=== PATIENT | female | born 1985 | race Caucasian/White ===

== ENCOUNTER → 2020-12-12 | Outpatient (CLI) | payer OTHER ==
[~2020-12-12] MED LIST: AMOX500 PO; ATEN100 PO; CIPR500 PO; CLIN150 PO; CLON.5 PO; CODACE30 PO; CODGUAEL PO; CYCL10 PO; DOXY100 PO; ERYT.5TO RIGHTEYE; HYDACE5 PO; IBUP200; LEVFLO500 PO; LISI5 PO; LORA10ER PO; MEDR10 PO; METR500 PO; MULVITMINE; MULVITMINE PO; NAPR375 PO; NEOPOLHYDS OT; Norco 5-325 Ta1 EACH PO; OXECTA5 MG PO; OXYACE5T PO; OXYC5 PO; PARO10 PO; PHENA200 PO; PROM25 PO; RXALBOI INH; RXHYDACE PO; RXOXYACE PO; RXTRAM50 PO; Roxicodone5 MG PO; SULTRIDS PO; TRAM50 PO; Verotin-Gr Cap1 EACH PO; WARF1 PO; ZOLP5 PO
== END | disposition home or self-care (01) ==
LOC: LAB 20:23 → LAB SHORT 20:23
DX: J02.9 Acute pharyngitis, unspecified (principal)
CPT/HCPCS: 87081

== ENCOUNTER 2021-05-28 23:51 | Emergency (ER) | payer OTHER ==
[~2021-05-28] VITALS: Ht 167.6 cm; Wt 72.6 kg
== END 2021-05-29 00:58 | disposition home or self-care (01) ==
LOC: ER 23:51
DX: U07.1 COVID-19 (principal); Z88.6 Allergy status to analgesic agent; Z91.018 Allergy to other foods; Z87.891 Personal history of nicotine dependence
CPT/HCPCS: 99283

== ENCOUNTER → 2021-11-17 | Outpatient (CLI) | payer OTHER ==
[2021-11-21 00:07] LABS: CHLAMYDIA TRACHOMATIS, NAA Positive (Negative)
== END | disposition home or self-care (01) ==
LOC: LAB 16:23 → LAB SHORT 16:23
PROVIDERS: Nurse Practitioner Family
DX: Z72.51 High risk heterosexual behavior (principal)
CPT/HCPCS: 87491; 87591

== ENCOUNTER 2022-03-21 18:51 | Emergency (ER) | payer OTHER ==
[~2022-03-21] VITALS: Ht 167.6 cm; Wt 79.8 kg
[2022-03-21] MEDS ORDERED: NAPR500 PO (21:01)
[2022-03-21] MEDS ORDERED: CRUTCH4 XX (21:01)
[2022-03-21] MEDS ORDERED: CYCL10 PO (21:01)
== END 2022-03-21 21:14 | disposition home or self-care (01) ==
LOC: ER 18:51
DX: S76.911A Strain of unspecified muscles, fascia and tendons at thigh level, right thigh, initial encounter (principal); F41.9 Anxiety disorder, unspecified; F32.A Depression, unspecified; Z88.6 Allergy status to analgesic agent; Z91.018 Allergy to other foods; Z87.891 Personal history of nicotine dependence; X58.XXXA Exposure to other specified factors, initial encounter; Y93.64 Activity, baseball; Y92.9 Unspecified place or not applicable
CPT/HCPCS: 76882; J1885

== ENCOUNTER → 2022-05-27 | Outpatient (CLI) | payer OTHER ==
[~2022-05-27] MED LIST changes: +CRUTCH4 XX; +NAPR500 PO
[2022-05-29 01:08] LABS: CHLAMYDIA TRACHOMATIS, NAA Negative (Negative)
== END ==
LOC: LAB SHORT 15:30 → LAB 15:30
PROVIDERS: Family Medicine
DX: Z20.2 Contact with and (suspected) exposure to infections with a predominantly sexual mode of transmission (principal)
CPT/HCPCS: 87491; 87591

== ENCOUNTER → 2022-08-18 | Outpatient (CLI) | payer OTHER | LOC: LAB 16:52 → LAB SHORT 16:52 | DX: N39.0 Urinary tract infection, site not specified (principal) | CPT/HCPCS: 87077; 87086; 87186 ==

== ENCOUNTER → 2023-04-06 | Outpatient (CLI) | payer OTHER ==
[2023-04-06 17:47] LABS: Source, Urine Voided
[2023-04-06 18:47] LABS: Appearance, Urine Hazy (Clear); Blood, Urine 4+ (Neg); Color, Urine Red (P-Yellow); Glucose Qualitative, Urine Neg (Neg); Ketones, Urine Neg (Neg); Leukocyte Esterase, Urine 1+ (Neg); Nitrite, Urine Pos (Neg); Protein, Urine 1+ (Neg); Specific Gravity, Urine 1.025 (1.003-1.022); Urobilinogen, Urine 1+ (Normal)
[2023-04-06 19:11] LABS: Bilirubin, Urine 1+ (Neg)
[2023-04-06 19:13] LABS: Bacteria Many /hpf; Squamous Epithelial Cells Few /hpf (Few)
[2023-04-06 19:14] LABS: Mucus Light (0-Heavy)
[2023-04-06 19:15] LABS: Hyaline Casts 0-2 /lpf (0-2)
== END | disposition home or self-care (01) ==
LOC: LAB SHORT 12:05 → LAB 12:05
PROVIDERS: Nurse Practitioner Family
DX: N39.0 Urinary tract infection, site not specified (principal)
CPT/HCPCS: 81001; 87086

== ENCOUNTER → 2024-01-13 | Outpatient (CLI) | payer OTHER | END | disposition home or self-care (01) | LOC: LAB SHORT 08:08 → LAB 08:08 | DX: N92.0 Excessive and frequent menstruation with regular cycle (principal) | CPT/HCPCS: 88305 ==

== ENCOUNTER → 2024-02-14 | Outpatient (CLI) | payer OTHER ==
[~2024-02-14] MED LIST changes: +Iron Chews15 MG; +MULVITA; +OXYC5
== END ==
LOC: LAB 07:56 → LAB SHORT 07:56
DX: D06.9 Carcinoma in situ of cervix, unspecified (principal); D06.0 Carcinoma in situ of endocervix
CPT/HCPCS: 88305

== ENCOUNTER 2024-02-28 12:16 | Day surgery (SDC) | payer BC, OTHER ==
[~2024-02-28] VITALS: Ht 167.6 cm; Wt 83.4 kg
[~2024-02-28 12:16] MED LIST changes: -Iron Chews15 MG; +Lidocaine HCl/Pf 1% 5 ML VIAL ONE; -MULVITA; -OXYC5; +Vasopressin 20 UNITS/ML 1ML Vial ONE
[2024-02-28] MEDS ORDERED: OXYC5 (12:55)
[2024-02-28] MEDS ORDERED: Iron Chews15 MG (12:56)
[2024-02-28] MEDS ORDERED: MULVITA (12:56)
[2024-02-28] MEDS ORDERED: Lactated Ringer's 1,000 ML IV ONE ×2 (13:14→13:51)
[2024-02-28] MEDS ORDERED: FentaNYL Citrate 50 MCG/ML 2 ML Injection ONE ×2 (13:26→14:46)
[2024-02-28] MEDS ORDERED: propofoL 20 ML IV ONE (13:26)
[2024-02-28] MEDS ORDERED: Ondansetron HCl 2 MG / ML 2ML Vial ONE (13:27)
[2024-02-28] MEDS ORDERED: Dexamethasone Sod Phos 10 MG/ML 1ML VIAL ONE (13:27)
[2024-02-28] MEDS ORDERED: Ketorolac Tromethamine 30mg Vial ONE (13:27)
[2024-02-28] MEDS ORDERED: Lidocaine HCl 1% 30 ML SDV XX ONE (13:48)
[2024-02-28 14:54] VITALS: BP 124/84
[2024-02-28] MEDS ORDERED: OxyCODONE HCL 5 MG TAB ONE (15:26)
--- NOTE | 2024-02-28 15:36 | NUR ---
02/28/24 1536 Giselle Dallas PATIENT C/O 4/10 ABDOMINAL PAIN. STATES TOLERABLE LEVEL OF PAIN IS "MAYBE AROUDN 3-4". PER ORDERS FROM DR AGUILLON, 1 TABLET OXYCODONE 5MG PO GIVEN NOW. PER ANESTHESIA RECORDS, PATIENT ALREADY RECEIVED 30MG TORADOL IN THE OR SO DID NOT GIVE TORADOL. PATIENT ADVISED THAT NEXT DOSE OF OXYCODONE WILL BE DUE AROUND 9;30 PM TONIGHT AND NEXT DOSE OF IBUPROFEN CAN BE TAKEN AROUND 7:30PM BASED ON TIME TORADOL WAS GIVEN IN OR. PT VERBALIZED THAT SHE IS READY TO GO HOME. VSS. , JODI AT CHAIRSIDE.
== END 2024-02-28 15:46 | disposition home or self-care (01) ==
LOC: ORSCSDS 12:16
PROVIDERS: Obstetrics & Gynecology
PROC: 0UBC7ZX Excision of Cervix, Via Natural or Artificial Opening, Diagnostic (ICD-10-PCS; principal; 2024-02-28 13:30)
DX: D06.9 Carcinoma in situ of cervix, unspecified (principal); N72 Inflammatory disease of cervix uteri; K21.9 Gastro-esophageal reflux disease without esophagitis; F41.9 Anxiety disorder, unspecified; F32.A Depression, unspecified; Z79.899 Other long term (current) drug therapy; F17.290 Nicotine dependence, other tobacco product, uncomplicated
CPT/HCPCS: 88305; 88341; 88342; A9270; J1100; J1885; J2001; J2405; J2704; J3010; J7120

== ENCOUNTER 2024-08-31 08:38 | Day surgery (SDC) | payer BC, OTHER ==
[~2024-08-31] VITALS: Ht 167.6 cm; Wt 85.0 kg
[~2024-08-31 08:38] MED LIST changes: +Acerola C500 MG PO; +ERGO50000 PO; +FERSU300 PO; +IBUP800 PO; +Iron Chews15 MG; +Lactated Ringer's 1,000 ML IV ONE; -Lidocaine HCl/Pf 1% 5 ML VIAL ONE; +MULVITA; +PREG25 PO; +VALA500 PO; +VITAMIN D2 PO; +VITAMIN D350 MC3 PO; +VITAMIN D5000 UNIT PO; -Vasopressin 20 UNITS/ML 1ML Vial ONE; +Vitamin B-12100 MCG PO
[2024-08-31] MEDS ORDERED: CeFAZolin Sodium 2,000 MG VIAL ONE ×2 (08:54→09:17)
[2024-08-31] MEDS ORDERED: NS 0 ML IV ONE ×2 (08:54→09:17)
[2024-08-31] MEDS ORDERED: Lactated Ringer's 1,000 ML IV ONE (09:14)
[2024-08-31] MEDS ORDERED: propofoL 40 ML IV ONE (09:58)
[2024-08-31] MEDS ORDERED: Midazolam HCl 1MG / ML 2ML Vial ONE (09:58)
[2024-08-31] MEDS ORDERED: Ondansetron HCl 2 MG / ML 2ML Vial ONE (10:43)
[2024-08-31] MEDS ORDERED: Dexamethasone Sod Phos 10 MG/ML 1ML VIAL ONE (10:43)
[2024-08-31] MEDS ORDERED: propofoL 20 ML IV ONE ×2 (11:08→11:25)
[2024-08-31] MEDS ORDERED: FentaNYL Citrate 50 MCG/ML 2 ML Injection ONE ×2 (11:13→11:57)
--- NOTE | 2024-08-31 12:01 | NUR ---
08/31/24 1201 Hanny Kuhn O2 DISCONTINUED SATS 96% ON 3L/MASK. SATS AT 96% ON RA.
--- NOTE | 2024-08-31 12:32 | NUR ---
08/31/24 1232 BamHanny S BACK WITH PT. PT. EATING APPLESAUCE & DRINKING APPLE JUICE. PAIN NOW A "4" AFTER 2ND DOSE 25MCG IV FENTANYL GIVEN. CALL LIGHT IS WITHIN REACH.
[2024-08-31 13:01] VITALS: BP 138/91
== END 2024-08-31 13:24 | disposition home or self-care (01) ==
LOC: ORSCSDS 08:38
PROVIDERS: Orthopaedic Surgery
PROC: 01N50ZZ Release Median Nerve, Open Approach (ICD-10-PCS; principal; 2024-08-31 10:00)
DX: G56.03 Carpal tunnel syndrome, bilateral upper limbs (principal); F17.290 Nicotine dependence, other tobacco product, uncomplicated; E66.9 Obesity, unspecified; Z68.30 Body mass index [BMI] 30.0-30.9, adult
CPT/HCPCS: J0690; J1100; J2250; J2405; J2704; J3010; J7120

== ENCOUNTER 2024-10-05 09:17 | Day surgery (SDC) | payer BC, OTHER ==
[~2024-10-05] VITALS: Ht 167.6 cm; Wt 84.0 kg
[~2024-10-05 09:17] MED LIST changes: -Lactated Ringer's 1,000 ML IV ONE; +NS 500 ML IV ONE
[2024-10-05] MEDS ORDERED: CeFAZolin Sodium 2,000 MG VIAL ONE (09:22)
[2024-10-05] MEDS ORDERED: TIZANIDINE HCL213 PO (09:38)
[2024-10-05] MEDS ORDERED: Adipex-P37.5 M1 PO (09:38)
[2024-10-05] MEDS ORDERED: GABA100 PO (09:39)
[2024-10-05] MEDS ORDERED: CYCL10 PO (09:39)
[2024-10-05] MEDS ORDERED: FentaNYL Citrate 50 MCG/ML 2 ML Injection ONE ×2 (09:39→11:33)
[2024-10-05] MEDS ORDERED: Midazolam HCl 1MG / ML 2ML Vial ONE (09:40)
[2024-10-05] MEDS ORDERED: NS 500 ML IV ONE (10:15)
[2024-10-05] MEDS ORDERED: Dexmedetomidine HCL 200 MCG / 2 ML ONE (10:31)
[2024-10-05] MEDS ORDERED: propofoL 20 ML IV ONE (10:54)
[2024-10-05] MEDS ORDERED: Lidocaine 2%-Epineph 1:200000 20 ML SDV INJ ONE ×2 (11:06)
[2024-10-05] MEDS ORDERED: Lactated Ringer's 1,000 ML IV ONE (11:08)
--- NOTE | 2024-10-05 11:39 | NUR ---
10/05/24 1139 NICOLASA GUERRERO PT STATES PAIN 6 OR 7/10. PT MOANING. WILL GIVE FENTANYL
[2024-10-05] MEDS ORDERED: OxyCODONE HCL 5 MG TAB ONE (12:09)
[2024-10-05 12:16] VITALS: BP 101/63
--- NOTE | 2024-10-05 12:37 | NUR ---
10/05/24 1237 NICOLASA GUERRERO PT REQUESTING HAVING IV REMOVED. SHE REMOVED BP CUFF AND PULSE OX
== END 2024-10-05 12:50 | disposition home or self-care (01) ==
LOC: ORSCSDS 09:17
PROVIDERS: Orthopaedic Surgery
PROC: 01N50ZZ Release Median Nerve, Open Approach (ICD-10-PCS; principal; 2024-10-05 10:45)
DX: G56.02 Carpal tunnel syndrome, left upper limb (principal); F17.290 Nicotine dependence, other tobacco product, uncomplicated; Z79.899 Other long term (current) drug therapy; E66.9 Obesity, unspecified; Z68.35 Body mass index [BMI] 35.0-35.9, adult
CPT/HCPCS: A9270; J0690; J2250; J2704; J3010; J7040